=== PATIENT | female | born 1930 | race Caucasian/White ===

== ENCOUNTER 2018-04-30 21:50 | Inpatient (IN) | payer MEDICARE, OTHER ==
[2018-04-30] MEDS ORDERED: FUROSEMIDE INJ/PF 40 MG/4 ML SDV IV ONE ×2 (21:59→23:52)
[2018-04-30] MEDS ORDERED: IPRATROPIUM/ALBUTEROL 0.5-2.5 MG/3 ML AMPUL NEB ONE ×2 (21:59)
[2018-04-30 22:14] LABS: VENOUS BLOOD PCO2 51.4 mmHg (35-63); VENOUS BLOOD PH 7.38 (7.30-7.42)
[2018-04-30 22:22] LABS: ABSOLUTE BASOPHILS # (AUTO) 0.1 10^3/uL (0.0-0.2); ABSOLUTE EOSINOPHILS # (AUTO) 0.2 10^3/uL (0.0-0.6); ABSOLUTE LYMPHOCYTES (AUTO) 1.6 10^3/uL (0.5-4.7); ABSOLUTE MONOCYTES (AUTO) 0.8 10^3/uL (0.1-1.4); ABSOLUTE NEUT (AUTO) 3.2 10^3/uL (1.7-8.2); BASOPHILS % (AUTO) 1.2 % (0-2); EOSINOPHILS % (AUTO) 2.7 % (0-6); HEMATOCRIT 35.4 % (36.0-47.0); HEMOGLOBIN 11.3 g/dL (12.0-15.5); LYMPHOCYTES % (AUTO) 27.9 % (13-45); MEAN CORPUSCULAR HGB CONC 31.9 g/dL (32.0-36.0); MEAN CORPUSCULAR VOLUME 88 fl (80-97); PLATELET COUNT 481 10^3/uL (150-450); RED BLOOD COUNT 4.04 10^6/uL (3.72-5.28); RED CELL DISTRIBUTION WIDTH 17.9 % (11.5-14.0); SEGMENTED NEUTROPHILS % (AUTO) 55.2 % (42-78); TOTAL CELLS COUNTED % (AUTO) 100 %; WHITE BLOOD COUNT 5.9 10^3/uL (4.0-10.5)
[2018-04-30 22:27] LABS: ALANINE AMINOTRANSFERASE 44 U/L (9-52); ALBUMIN 3.2 g/dL (3.5-5.0); ALKALINE PHOSPHATASE 129 U/L (38-126); ANION GAP 10 (5-19); ASPARTATE AMINO TRANSFERASE 42 U/L (14-36); BILIRUBIN,DIRECT 0.2 mg/dL (0.0-0.4); BILIRUBIN,TOTAL 0.4 mg/dL (0.2-1.3); BLOOD UREA NITROGEN 12 mg/dL (7-20); CALCIUM 8.8 mg/dL (8.4-10.2); CARBON DIOXIDE 31 mmol/L (22-30); CHLORIDE 101 mmol/L (98-107); CREATINE KINASE 42 U/L (30-135); GLUCOSE 82 mg/dL (75-110); POTASSIUM 3.9 mmol/L (3.6-5.0); SODIUM 141.7 mmol/L (137-145); TOTAL PROTEIN 5.7 g/dL (6.3-8.2)
--- NOTE | 2018-04-30 22:35 | RADIOLOGY REPORT (SQ) ---
EXAM DESCRIPTION: CHEST SINGLE VIEW COMPLETED DATE/TIME: 04/30/2018 10:26 pm REASON FOR STUDY: SHORTNESS OF BREATH COMPARISON: None. EXAM PARAMETERS: NUMBER OF VIEWS: One view. TECHNIQUE: Single frontal radiographic view of the chest acquired. RADIATION DOSE: NA LIMITATIONS: None. FINDINGS: LUNGS AND PLEURA: Elevation of the right hemidiaphragm. Patchy airspace opacities in the left lung base as well as increased interstitial lung markings throughout. No definite effusions. MEDIASTINUM AND HILAR STRUCTURES: No masses. Contour normal. HEART AND VASCULAR STRUCTURES: Cardiomegaly is present. BONES: No acute findings. HARDWARE: None in the chest. OTHER: No other significant finding. IMPRESSION: Constellation of findings consistent with early congestive heart failure. TECHNICAL DOCUMENTATION: JOB ID: [id number] [employer]- All Rights Reserved Reading location - IP/workstation name: [email or web address]
[2018-04-30 22:39] LABS: NT PRO BNP 1670 pg/mL (<450)
[2018-04-30 22:40] LABS: TROPONIN I < 0.012 ng/mL
--- NOTE | 2018-04-30 23:05 | EKG REPORT ---
SEVERITY:- ABNORMAL ECG - SINUS RHYTHM SUPRAVENTRICULAR BIGEMINY INCOMPLETE RIGHT BUNDLE BRANCH BLOCK CONSIDER ANTERIOR INFARCT : Confirmed by: Laney Aquino MD 30-Apr-2018 23:05:16
[2018-04-30 23:13] LABS: APPEARANCE,URINE SLIGHTLY-CLOUDY; BILIRUBIN,URINE NEGATIVE (NEGATIVE); COLOR,URINE YELLOW; GLUCOSE, URINE NEGATIVE (NEGATIVE); KETONES,URINE NEGATIVE (NEGATIVE); LEUKOCYTE ESTERASE,URINE LARGE (NEGATIVE); NITRITE,URINE NEGATIVE (NEGATIVE); PROTEIN,URINE 100 mg/dL (NEGATIVE); URINE SPECIFIC GRAVITY 1.012; UROBILINOGEN,URINE NEGATIVE mg/dL (<2.0)
[2018-05-01] MEDS ORDERED: CEFTRIAXONE 1 GM/D5W RTU 1 GM/50 ML RTUPB IV ONE (01:37)
[2018-05-01] MEDS ORDERED: CEFTRIAXONE INJ 1000 MG VIAL ONE (01:51)
--- NOTE | 2018-05-01 02:01 | ER Document Report ---
ED General - General Chief Complaint: General Weakness Stated Complaint: ACUTE RESPIRATORY DISTRESS Time Seen by Provider: 04/30/18 21:58 Mode of Arrival: Medic Information source: Emergency Med Personnel Notes: This is an 88-year-old female with a history of CHF that is brought in by EMS in acute respiratory distress with an O2 sat in the field of 71%. Patient's states that she has been getting gradually short of breath progressively over the last several days. He does note that she has had increased swelling of the legs. EMS treated the patient with 1.5 mg of Vasotec and an inch and a half of Nitropaste - HPI Onset: Last week Onset/Duration: Gradual Quality of pain: No pain Severity: None Pain Level: Denies Associated symptoms: Shortness of breath. denies: Chest pain, Fever Exacerbated by: Movement Relieved by: Denies, Remaining still Similar symptoms previously: Yes Recently seen / treated by doctor: No - Related Data Allergies/Adverse Reactions: No Known Allergies Allergy (Unverified 04/30/18 22:27) Past Medical History - General Information source: Patient - Social History Smoking Status: Never Smoker Cigarette use (# per day): No Chew tobacco use (# tins/day): No Frequency of alcohol use: None Drug Abuse: None Lives with: Family Family History: None Patient has suicidal ideation: No Patient has homicidal ideation: No - Past Medical History Cardiac Medical History: Reports: Hx Congestive Heart Failure, Hx Hypertension Endocrine Medical History: Reports: Hx Diabetes Mellitus Type 2 Renal/ Medical History: Denies: Hx Peritoneal Dialysis Review of Systems - Review of Systems Constitutional: denies: Chills, Fever EENT: No symptoms reported Cardiovascular: See HPI Respiratory: See HPI Gastrointestinal: No symptoms reported Genitourinary: No symptoms reported Female Genitourinary: No symptoms reported Musculoskeletal: No symptoms reported Skin: No symptoms reported Hematologic/Lymphatic: No symptoms reported Neurological/Psychological: No symptoms reported Physical Exam - Vital signs Vitals: Resp Pulse Ox 22 H 100 04/30/18 21:55 04/30/18 21:55 Notes: Physical exam: GENERAL: 88-year-old female, acute respiratory distress HEAD: Atraumatic, normocephalic. EYES: Pupils equal round and reactive to light, extraocular movements intact, sclera anicteric, conjunctiva are normal. ENT: TMs normal, nares patent, oropharynx clear without exudates. Moist mucous membranes. NECK: Normal range of motion, supple without obvious mass or JVD. LUNGS: Rales bilaterally HEART: Regular rate and rhythm without murmurs, rubs or gallops. ABDOMEN: Soft, normoactive bowel sounds. No tenderness to palpation. No guarding, no rebound. No masses appreciated. EXTREMITIES: Lower extremity edema. NEUROLOGICAL: Cranial nerves II through XII grossly intact. Normal speech, moving all extremities. PSYCH: Normal mood, normal affect. SKIN: Warm, Dry, normal turgor, no rashes or lesions noted. Course - Re-evaluation Re-evalutation: 05/01/18 01:59 Patient is been treated with IV Lasix, Nitropaste, Vasotec, and BiPAP. She was gradually weaned off the BiPAP and has improved somewhat. Chest x-ray is consistent with CHF. BNP is elevated. She does have a UTI and has been given antibiotics. - Vital Signs Vital signs: Temp Pulse Resp BP Pulse Ox 18 148/74 H 93 04/30/18 22:27 04/30/18 22:27 04/30/18 23:45 - Laboratory Result Diagrams: 04/30/18 21:45 04/30/18 21:45 Laboratory results interpreted by me: 04/30/18 04/30/18 04/30/18 21:45 21:45 21:45 Hgb 11.3 L Hct 35.4 L MCHC 31.9 L RDW 17.9 H Plt Count 481 H Carbon Dioxide 31 H AST 42 H Alkaline Phosphatase 129 H NT-Pro-B Natriuret Pep 1670 H Total Protein 5.7 L Albumin 3.2 L Urine Protein Ur Leukocyte Esterase Urine Ascorbic Acid 04/30/18 22:17 Hgb Hct MCHC RDW Plt Count Carbon Dioxide AST Alkaline Phosphatase NT-Pro-B Natriuret Pep Total Protein Albumin Urine Protein 100 H Ur Leukocyte Esterase LARGE H Urine Ascorbic Acid 40 H - Diagnostic Test Radiology reviewed: Image reviewed, 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 Orellana Unit Admitted: Telemetry
[2018-05-01] MEDS ORDERED: OXYCODONE-ACETAMINOPHEN 5-325 MG TABLET PO PRN (09:36)
[2018-05-01] MEDS ORDERED: PROMETHAZINE HCL INJ 25 MG/1 ML VIAL IV PRN (09:36)
[2018-05-01] MEDS ORDERED: ACETAMINOPHEN 325 MG TABLET PO PRN (09:36)
[2018-05-01] MEDS ORDERED: IPRATROPIUM/ALBUTEROL 0.5-2.5 MG/3 ML AMPUL NEB PRN (09:36)
[2018-05-01] MEDS ORDERED: CEFTRIAXONE 1 GM/D5W RTU 1 GM/50 ML RTUPB IV SCH (10:00)
--- NOTE | 2018-05-01 10:05 | PDOC H&P ---
History of Present Illness Admission Date/PCP: 05/01/18 02:40 AUNG MONREAL PA-C Patient complains of: Progressive difficulty breathing and shortness of breath for few days History of Present Illness: BLANKA TRACY is a 87 year old female This 88-year-old female presents to emergency room apparently in acute respiratory distress. She had been getting severely short of breath over the last few days as well as swelling in her legs. She was found to be hypoxemic with oxygen saturation of 71% and she was treated with IV Vasotec as well as Nitropaste as outpatient. Please note this history is obtained solely from the chart as patient is unable to provide any history due to her condition. At the time of my exam she is also currently on BiPAP. She does appear to be comfortable Past Medical History Cardiac Medical History: Reports: Congestive Heart Failure, Hypertension Endocrine Medical History: Reports: Diabetes Mellitus Type 2 Psychiatric Medical History: Denies: Depression Past Surgical History Past Surgical History: Reports: Other - Unknown Social History Information Source: [facility] Records - Patient has minimal prior records at [facility] Lives with: Family Smoking Status: Former Smoker Last Time Smoked: 40yr ago Frequency of Alcohol Use: None Hx Recreational Drug Use: No Hx Prescription Drug Abuse: No - Advance Directive Resuscitation Status: Full Code Family History Family History: None Parental Family History Reviewed: No Children Family History Reviewed: No Sibling(s) Family History Reviewed.: No Medication/Allergy Allergies/Adverse Reactions: No Known Allergies Allergy (Unverified 04/30/18 22:27) Review of Systems ROS unobtainable: Other - Due to BIPAP and mental status Physical Exam Vital Signs: Temp Pulse Resp BP Pulse Ox 98.4 F 59 L 18 176/50 H 96 05/01/18 07:40 05/01/18 08:39 05/01/18 08:39 05/01/18 07:40 05/01/18 08:39 Intake & Output 04/30/18 05/01/18 05/02/18 06:59 06:59 06:59 Output Total 650 Balance -650 Weight 69.7 kg General appearance: PRESENT: no acute distress, well-developed, other - BIPAP mask on Head exam: PRESENT: atraumatic Neck exam: ABSENT: carotid bruit, JVD, lymphadenopathy, thyromegaly Respiratory exam: PRESENT: accessory muscle use, crackles, rhonchi Cardiovascular exam: PRESENT: RRR, +S1, +S2 GI/Abdominal exam: PRESENT: normal bowel sounds, soft. ABSENT: distended, guarding, mass, organolmegaly, rebound, tenderness Extremities exam: ABSENT: pedal edema, +1 edema, +2 edema Musculoskeletal exam: PRESENT: normal inspection Neurological exam: PRESENT: awake Psychiatric exam: PRESENT: other - unable to evaluate Results Laboratory Results: 04/30/18 21:45 04/30/18 21:45 MCV 88 fl (80-97) 04/30/18 21:45 MCH 28.0 pg (27.0-33.4) 04/30/18 21:45 MCHC 31.9 g/dL (32.0-36.0) L 04/30/18 21:45 RDW 17.9 % (11.5-14.0) H 04/30/18 21:45 Seg Neutrophils % 55.2 % (42-78) 04/30/18 21:45 Lymphocytes % 27.9 % (13-45) 04/30/18 21:45 Monocytes % 13.0 % (3-13) 04/30/18 21:45 Eosinophils % 2.7 % (0-6) 04/30/18 21:45 Basophils % 1.2 % (0-2) 04/30/18 21:45 Absolute Neutrophils 3.2 10^3/uL (1.7-8.2) 04/30/18 21:45 Absolute Lymphocytes 1.6 10^3/uL (0.5-4.7) 04/30/18 21:45 Absolute Monocytes 0.8 10^3/uL (0.1-1.4) 04/30/18 21:45 Absolute Eosinophils 0.2 10^3/uL (0.0-0.6) 04/30/18 21:45 Absolute Basophils 0.1 10^3/uL (0.0-0.2) 04/30/18 21:45 VBG pH 7.38 (7.30-7.42) 04/30/18 22:05 VBG pCO2 51.4 mmHg (35-63) 04/30/18 22:05 VBG HCO3 30.0 mmol/L (20-32) 04/30/18 22:05 VBG Base Excess 4.0 mmol/L 04/30/18 22:05 Chloride 101 mmol/L (98-107) 04/30/18 21:45 Carbon Dioxide 31 mmol/L (22-30) H 04/30/18 21:45 Anion Gap 10 (5-19) 04/30/18 21:45 Est GFR ( Amer) > 60 (>60) 04/30/18 21:45 Est GFR (Non-Af Amer) > 60 (>60) 04/30/18 21:45 Glucose 82 mg/dL (75-110) 04/30/18 21:45 Lactic Acid 1.0 mmol/L (0.7-2.1) 04/30/18 22:05 Calcium 8.8 mg/dL (8.4-10.2) 04/30/18 21:45 Total Bilirubin 0.4 mg/dL (0.2-1.3) 04/30/18 21:45 AST 42 U/L (14-36) H 04/30/18 21:45 ALT 44 U/L (9-52) 04/30/18 21:45 Alkaline Phosphatase 129 U/L (38-126) H 04/30/18 21:45 Total Protein 5.7 g/dL (6.3-8.2) L 04/30/18 21:45 Albumin 3.2 g/dL (3.5-5.0) L 04/30/18 21:45 Urine Color YELLOW 04/30/18 22:17 Urine Appearance SLIGHTLY-CLOUDY 04/30/18 22:17 Urine pH 6.0 (5.0-9.0) 04/30/18 22:17 Ur Specific [place] 1.012 04/30/18 22:17 Urine Protein 100 mg/dL (NEGATIVE) H 04/30/18 22:17 Urine Glucose (UA) NEGATIVE mg/dL (NEGATIVE) 04/30/18 22:17 Urine Ketones NEGATIVE mg/dL (NEGATIVE) 04/30/18 22:17 Urine Blood NEGATIVE (NEGATIVE) 04/30/18 22:17 Urine Nitrite NEGATIVE (NEGATIVE) 04/30/18 22:17 Ur Leukocyte Esterase LARGE (NEGATIVE) H 04/30/18 22:17 Urine WBC (Auto) 71 /HPF 04/30/18 22:17 Urine RBC (Auto) 1 /HPF 04/30/18 22:17 04/30/18 04/30/18 21:45 21:45 Creatine Kinase 42 CK-MB (CK-2) 2.00 Troponin I < 0.012 NT-Pro-B Natriuret Pep 1670 H Impressions: Chest X-Ray 04/30/18 21:51 IMPRESSION: Constellation of findings consistent with early congestive heart failure. Assessment & Plan - Diagnosis (1) Acute hypoxemic respiratory failure Is this a current diagnosis for this admission?: Yes Plan: Continue oxygen support and wean off of BiPAP as tolerated. Acute respiratory failure likely secondary to CHF. (2) CHF (congestive heart failure) Qualifiers: Heart failure chronicity: unspecified Is this a current diagnosis for this admission?: Yes Plan: Chest x-ray suggest early congestive heart failure. BNP is elevated also. There is no prior history of CHF and I have no home medications list at this time so it is really difficult to know if this patient had a prior history of CHF. Will continue Lasix and obtain a two-dimensional echocardiogram. We will continue with vasodilator. EKG shows incomplete right bundle branch block with no acute ST changes (3) UTI (urinary tract infection) Qualifiers: Urinary tract infection type: site unspecified Is this a current diagnosis for this admission?: Yes Plan: Continue Ceftriaxone and follow up on cultures - Time Time Spent: 50 to 70 Minutes Medications reviewed and adjusted accordingly: Yes Anticipated discharge: Home Within: within 48 hours - Inpatient Certification Based on my medical assessment, after consideration of the patient's comorbidities, presenting symptoms, or acuity I expect that the services needed warrant INPATIENT care.: Yes Medical Necessity: Need For Continuous Telemetry Monitoring, Need for IV Antibiotics
[2018-05-01] MEDS: DOCUSATE SODIUM 100 MG CAPSULE PO SCH (10:11)
[2018-05-01] MEDS: FUROSEMIDE INJ/PF 40 MG/4 ML SDV IV SCH ×2 (10:11→22:06)
[2018-05-01] MEDS: ENOXAPARIN SODIUM INJ 40 MG/0.4 ML DISP.SYRIN SUBCUT SCH (10:11)
[2018-05-01] MEDS ORDERED: CEFTRIAXONE SODIUM 1,000 MG in DEXTROSE 5%-WATER 50 ML IV SCH (11:00)
[2018-05-01] MEDS ORDERED: NITROGLYCERIN 2% OINTMENT 1 GM PACKET TP SCH (12:00)
[2018-05-01] MEDS ORDERED: HYDRALAZINE HCL INJ/PF 20 MG/1 ML SDV IV PRN (15:44)
[2018-05-01] MEDS ORDERED: DEXTROSE 50%-WATER 25 GM/50 ML DISP.SYRIN IV PRN ×2 (15:46)
[2018-05-01] MEDS ORDERED: GLUCAGON,HUMAN RECOMB 1 MG INJ IM PRN (15:46)
[2018-05-01] MEDS ORDERED: DEXTROSE 40% GEL 15 GM TUBE PO PRN ×2 (15:46)
[2018-05-01] MEDS: CALCIUM CARBONATE 250 MG/VITAMIN D3 125 UNIT TABLET PO SCH (17:52)
[2018-05-01] MEDS: NITROGLYCERIN 2% OINTMENT 1 GM PACKET TP SCH (17:53)
[2018-05-01] MEDS: DONEPEZIL HCL 5 MG TABLET PO SCH (17:53)
[2018-05-01] MEDS: ESCITALOPRAM OXALATE 10 MG TABLET PO SCH (17:53)
[2018-05-01] MEDS ORDERED: (PENDING PHARMACY ID) (Calcium Carbonate/Vitamin D3 [Oyster Shell 500-Vit D3 200 Tb] 1 EAC PO SCH (18:00)
[2018-05-01] MEDS ORDERED: (PENDING PHARMACY ID) (Donepezil Hcl [Aricept] 10 MG) PO SCH (18:00)
[2018-05-01] MEDS: ATORVASTATIN CALCIUM 20 MG TABLET PO SCH (22:03)
[2018-05-01] MEDS: ASPIRIN 81 MG TABLET, CHEWABLE PO SCH (22:03)
[2018-05-01] MEDS: CARVEDILOL 12.5 MG TABLET PO SCH (22:04)
[2018-05-01] MEDS: NIFEDIPINE 30 MG TAB.ER.24 PO SCH (22:05)
[2018-05-01] MEDS: LOSARTAN POTASSIUM 50 MG TABLET PO SCH (22:12)
[2018-05-01] MEDS: ROPINIROLE HCL 2 MG TABLET PO SCH (22:17)
[2018-05-01] MEDS: CEFTRIAXONE SODIUM 1,000 MG in DEXTROSE 5%-WATER 50 ML IV SCH (22:50)
[2018-05-02] MEDS: NITROGLYCERIN 2% OINTMENT 1 GM PACKET TP SCH ×4 (00:38→17:54)
[2018-05-02] MEDS: LEVOTHYROXINE SODIUM 0.15 MG TABLET PO SCH (05:30)
[2018-05-02 06:32] LABS: HEMATOCRIT 39.4 % (36.0-47.0); HEMOGLOBIN 12.9 g/dL (12.0-15.5); MEAN CORPUSCULAR HEMOGLOBIN 28.2 pg (27.0-33.4); MEAN CORPUSCULAR HGB CONC 32.8 g/dL (32.0-36.0); MEAN CORPUSCULAR VOLUME 86 fl (80-97); PLATELET COUNT 480 10^3/uL (150-450); RED BLOOD COUNT 4.58 10^6/uL (3.72-5.28); RED CELL DISTRIBUTION WIDTH 18.5 % (11.5-14.0); WHITE BLOOD COUNT 8.6 10^3/uL (4.0-10.5)
[2018-05-02 08:42] LABS: BLOOD UREA NITROGEN 16 mg/dL (7-20); CALCIUM 9.2 mg/dL (8.4-10.2); CHLORIDE 89 mmol/L (98-107); GLUCOSE 180 mg/dL (75-110); POTASSIUM 3.5 mmol/L (3.6-5.0); SODIUM 140.3 mmol/L (137-145)
[2018-05-02 08:49] LABS: ANION GAP 12 (5-19)
[2018-05-02 08:59] LABS: CARBON DIOXIDE 39 mmol/L (22-30)
[2018-05-02] MEDS: ENOXAPARIN SODIUM INJ 40 MG/0.4 ML DISP.SYRIN SUBCUT SCH (09:24)
[2018-05-02] MEDS: INSULIN REG, HUMAN 100 UNIT/ML 3 ML VIAL (PYX) SUBCUT PRN ×2 (09:25→16:47)
[2018-05-02] MEDS: CARVEDILOL 12.5 MG TABLET PO SCH ×2 (09:26→23:02)
[2018-05-02] MEDS: DOCUSATE SODIUM 100 MG CAPSULE PO SCH (09:26)
[2018-05-02] MEDS: ANASTROZOLE 1 MG TABLET PO SCH (09:27)
[2018-05-02] MEDS: FUROSEMIDE INJ/PF 40 MG/4 ML SDV IV SCH ×2 (09:28→23:03)
[2018-05-02] MEDS: EPLERENONE 25 MG TABLET PO SCH (09:28)
[2018-05-02] MEDS: ROPINIROLE HCL 2 MG TABLET PO SCH ×2 (09:28→23:06)
[2018-05-02] MEDS ORDERED: (PENDING PHARMACY ID) (Eplerenone [Inspra] 50 MG) PO SCH (10:00)
--- NOTE | 2018-05-02 14:40 | PDOC PROGRESS REPORT ---
Subjective Progress Note for:: 05/02/18 Subjective:: Patient is awake and alert and her is at bedside today Reason For Visit: ACUTE RESPIRATORY FAILURE, CHF EXACERBATION Physical Exam Vital Signs: Temp Pulse Resp BP Pulse Ox 97.7 F 73 21 H 131/47 H 96 05/02/18 07:12 05/02/18 08:50 05/02/18 08:50 05/02/18 07:12 05/02/18 08:50 Intake & Output 05/01/18 05/02/18 05/03/18 06:59 06:59 06:59 Intake Total 600 Output Total 650 3250 Balance -650 -2650 Weight 69.7 kg 66.4 kg General appearance: PRESENT: no acute distress Head exam: PRESENT: atraumatic Neck exam: ABSENT: carotid bruit, JVD, lymphadenopathy, thyromegaly Respiratory exam: PRESENT: accessory muscle use, decreased breath sounds, symmetrical. ABSENT: retraction, rhonchi, tachypnea, wheezes Cardiovascular exam: PRESENT: RRR. ABSENT: diastolic murmur, rubs, systolic murmur GI/Abdominal exam: PRESENT: normal bowel sounds, soft. ABSENT: distended, guarding, mass, organolmegaly, rebound, tenderness Rectal exam: PRESENT: deferred Neurological exam: PRESENT: alert, awake. ABSENT: oriented to person, oriented to place, oriented to time, oriented to situation, CN II-XII grossly intact Psychiatric exam: PRESENT: appropriate affect Results Laboratory Results: 05/02/18 05:56 05/02/18 07:54 05/02/18 05/02/18 05/02/18 05:56 05:56 07:54 WBC 8.6 RBC 4.58 Hgb 12.9 Hct 39.4 MCV 86 MCH 28.2 MCHC 32.8 RDW 18.5 H Plt Count 480 H Sodium Cancelled 140.3 Potassium Cancelled 3.5 L Chloride Cancelled 89 L Carbon Dioxide Cancelled 39 H Anion Gap Cancelled 12 BUN Cancelled 16 Creatinine Cancelled 0.61 Est GFR ( Amer) Cancelled > 60 Est GFR (Non-Af Amer) Cancelled > 60 Glucose Cancelled 180 H Calcium Cancelled 9.2 Impressions: Chest X-Ray 04/30/18 21:51 IMPRESSION: Constellation of findings consistent with early congestive heart failure. Assessment & Plan - Diagnosis (1) Acute hypoxemic respiratory failure Is this a current diagnosis for this admission?: Yes Plan: Continue oxygen support. Acute respiratory failure likely secondary to CHF. (2) CHF (congestive heart failure) Qualifiers: Heart failure type: diastolic Heart failure chronicity: acute on chronic Qualified Code(s): I50.33 - Acute on chronic diastolic (congestive) heart failure Is this a current diagnosis for this admission?: Yes Plan: Chest x-ray suggest early congestive heart failure. BNP is elevated also. Patient actually had an echo done in February 2018 and this revealed normal left ventricular ejection fraction grade 2 diastolic dysfunction and mild to moderate mitral regurgitation EKG shows incomplete right bundle branch block with no acute ST changes (3) UTI (urinary tract infection) Qualifiers: Urinary tract infection type: site unspecified Is this a current diagnosis for this admission?: Yes Plan: We will continue with empiric antibiotics and adjust depending on the culture result (4) Do not resuscitate Is this a current diagnosis for this admission?: Yes Plan: I discussed with the spouse today any complaints the patient is a DO NOT RESUSCITATE - Time Time Spent with patient: 15-24 minutes Medications reviewed and adjusted accordingly: Yes Anticipated discharge: Home Within: within 72 hours - Inpatient Certification Based on my medical assessment, after consideration of the patient's comorbidities, presenting symptoms, or acuity I expect that the services needed warrant INPATIENT care.: Yes Medical Necessity: Need Close Monitoring Due to Risk of Patient Decompensation, Need for Nebulizer Therapy and Monitoring of Response
[2018-05-02] MEDS: ESCITALOPRAM OXALATE 10 MG TABLET PO SCH (17:53)
[2018-05-02] MEDS: DONEPEZIL HCL 5 MG TABLET PO SCH (17:53)
[2018-05-02] MEDS: CALCIUM CARBONATE 250 MG/VITAMIN D3 125 UNIT TABLET PO SCH (17:53)
--- NOTE | 2018-05-02 18:04 | XCELERA REPORT ---
[address] [address] Transthoracic Echocardiogram Report Name: BLANKA TRACY Age: 87 yrs Gender: Female : 1930 Patient Status: Inpatient Patient Location: [address] [place] [address] Study Date: 05/02/2018 02:44 PM Procedure: A complete two-dimensional transthoracic echocardiogram was performed (2D, M-mode, spectral and color flow Doppler). The study was technically adequate with some images being suboptimal in quality. Reason For Study: Dyspnea, elevated BNP Ordering Physician: BERTHA ROME Performed By: Roxann Goff Interpretation Summary The left ventricular ejection fraction is normal. There is mild concentric left ventricular hypertrophy. The left ventricle is grossly normal size. Doppler measurements suggest pseudonormalized left ventricular relaxation, which is associated with grade II/IV or mild to moderate diastolic dysfunction Wall motion cannot be accurately commented on, but no definite regional wall motion abnormalities noted. The right ventricle is mildly dilated. The right ventricle appears to be hypertrophied The right atrium is normal in size The left atrium is mildly dilated. There is a trace amount of mitral regurgitation There is no mitral valve stenosis. There is a trace to mild amount of aortic regurgitation There is mild aortic stenosis There is a mild amount of tricuspid regurgitation There is mild pulmonary hypertension by echo Right ventricular systolic pressure is estimated to be elevated at 30- 40mmHg. The aortic root is not well visualized. The inferior vena cava was not well visualized There is no pericardial effusion. MMode/2D Measurements & Calculations RVDd: 3.6 cm LVIDd: 5.0 cmFS: 27.5 % Ao root diam: 3.4 cm IVSd: 1.1 cm LVIDs: 3.7 cmEDV(Teich): 120.8 ml Ao root area: 9.1 cm2 LVPWd: 1.1 cmESV(Teich): 56.6 ml EF(Teich): 53.1 % LVOT diam: 1.4 cm LVOT area: 1.5 cm2 Doppler Measurements & Calculations MV E max david: MV dec slope: Ao V2 max: AI max david: 47.4 cm/sec 175.5 cm/sec 346.4 cm/sec MV A max david: 205.3 cm/sec2 Ao max PG: AI max P.4 cm/sec MV dec time: 12.3 mmHg 48.0 mmHg MV E/A: 0.58 0.23 sec Ao V2 mean: AI dec slope: 127.8 cm/sec Ao mean P.9 cm/sec2 7.1 mmHg AI P1/2t: Ao V2 VTI: 518.0 msec 36.5 cm TRINI(I,D): 0.62 cm2 TRINI(V,D): 0.51 cm2 LV V1 max PG: SV(LVOT): 22.6 ml PA V2 max: PI end-d david: 1.5 mmHg 100.9 cm/sec 100.9 cm/sec LV V1 mean PG: PA max P.97 mmHg 4.1 mmHg LV V1 max: 61.5 cm/sec LV V1 mean: 47.5 cm/sec LV V1 VTI: 15.5 cm TR max david: 283.0 cm/sec TR max P.0 mmHg Left Ventricle The left ventricle is grossly normal size. There is mild concentric left ventricular hypertrophy. The left ventricular ejection fraction is normal. Doppler measurements suggest pseudonormalized left ventricular relaxation, which is associated with grade II/IV or mild to moderate diastolic dysfunction. Wall motion cannot be accurately commented on, but no definite regional wall motion abnormalities noted. Right Ventricle The right ventricle is mildly dilated. The right ventricle appears to be hypertrophied. The right ventricular systolic function is normal. Atria The right atrium is normal in size. The left atrium is mildly dilated. Interarterial septum not well visualized and not well dopplered. Cannot comment on ASD/PFO presence. Mitral Valve The mitral valve is grossly normal. There is no mitral valve stenosis. There is a trace amount of mitral regurgitation. Aortic Valve The aortic valve is mildly calcified. There is mild aortic stenosis. There is a trace to mild amount of aortic regurgitation. Tricuspid Valve The tricuspid valve is not well visualized, but is grossly normal. There is no tricuspid stenosis. There is a mild amount of tricuspid regurgitation. There is mild pulmonary hypertension by echo. Right ventricular systolic pressure is estimated to be elevated at 30-40mmHg. Pulmonic Valve The pulmonic valve is not well visualized. Great Vessels The aortic root is not well visualized. The inferior vena cava was not well visualized. Effusions There is no pericardial effusion. : BERTHA ROME > Benjamin Cerna
[2018-05-02] MEDS: NIFEDIPINE 30 MG TAB.ER.24 PO SCH (23:02)
[2018-05-02] MEDS: ATORVASTATIN CALCIUM 20 MG TABLET PO SCH (23:02)
[2018-05-02] MEDS: LOSARTAN POTASSIUM 50 MG TABLET PO SCH (23:02)
[2018-05-02] MEDS: ASPIRIN 81 MG TABLET, CHEWABLE PO SCH (23:03)
[2018-05-02] MEDS: CEFTRIAXONE SODIUM 1,000 MG in DEXTROSE 5%-WATER 50 ML IV SCH (23:04)
[2018-05-03] MEDS: NITROGLYCERIN 2% OINTMENT 1 GM PACKET TP SCH ×3 (00:35→18:19)
[2018-05-03] MEDS: LEVOTHYROXINE SODIUM 0.15 MG TABLET PO SCH (05:31)
[2018-05-03] MEDS: INSULIN REG, HUMAN 100 UNIT/ML 3 ML VIAL (PYX) SUBCUT PRN ×2 (08:11→16:25)
[2018-05-03] MEDS: ANASTROZOLE 1 MG TABLET PO SCH (10:45)
[2018-05-03] MEDS: ENOXAPARIN SODIUM INJ 40 MG/0.4 ML DISP.SYRIN SUBCUT SCH (10:46)
[2018-05-03] MEDS: CARVEDILOL 12.5 MG TABLET PO SCH ×2 (10:46→22:15)
[2018-05-03] MEDS: EPLERENONE 25 MG TABLET PO SCH (10:46)
[2018-05-03] MEDS: DOCUSATE SODIUM 100 MG CAPSULE PO SCH (10:46)
[2018-05-03] MEDS: FUROSEMIDE INJ/PF 40 MG/4 ML SDV IV SCH (10:46)
[2018-05-03] MEDS: ROPINIROLE HCL 2 MG TABLET PO SCH ×2 (10:47→22:20)
--- NOTE | 2018-05-03 15:39 | PDOC PROGRESS REPORT ---
Subjective Progress Note for:: 05/03/18 Subjective:: Patient is awake and alert and her is at bedside today No new complaints Reason For Visit: ACUTE RESPIRATORY FAILURE, CHF EXACERBATION Physical Exam Vital Signs: Temp Pulse Resp BP Pulse Ox 97.9 F 70 16 114/46 L 97 05/03/18 11:54 05/03/18 11:54 05/03/18 11:54 05/03/18 11:54 05/03/18 11:54 Intake & Output 05/02/18 05/03/18 05/04/18 06:59 06:59 06:59 Intake Total 650 1823 Output Total 3250 500 Balance -2600 1323 Weight 66.4 kg 66.3 kg General appearance: PRESENT: no acute distress, cooperative Head exam: PRESENT: atraumatic Teeth exam: PRESENT: poor dentation Neck exam: ABSENT: carotid bruit, JVD, lymphadenopathy, thyromegaly Respiratory exam: PRESENT: decreased breath sounds, rhonchi GI/Abdominal exam: PRESENT: normal bowel sounds, soft. ABSENT: distended, guarding, mass, organolmegaly, rebound, tenderness Rectal exam: PRESENT: deferred Neurological exam: PRESENT: alert, awake Psychiatric exam: PRESENT: normal mood Results Laboratory Results: 05/02/18 05:56 05/02/18 07:54 Impressions: Chest X-Ray 04/30/18 21:51 IMPRESSION: Constellation of findings consistent with early congestive heart failure. Assessment & Plan - Diagnosis (1) Acute hypoxemic respiratory failure Is this a current diagnosis for this admission?: Yes Plan: Resolved (2) CHF (congestive heart failure) Qualifiers: Heart failure type: diastolic Heart failure chronicity: acute on chronic Qualified Code(s): I50.33 - Acute on chronic diastolic (congestive) heart failure Is this a current diagnosis for this admission?: Yes Plan: Chest x-ray suggest early congestive heart failure. BNP is elevated also. PCXR shows diastolic dysfunction. She has chronic diastolic dysfunction with acute decompensation EKG shows incomplete right bundle branch block with no acute ST changes (3) UTI (urinary tract infection) Qualifiers: Urinary tract infection type: site unspecified Is this a current diagnosis for this admission?: Yes Plan: Secondary to Salmonella will change antibiotics to Bactrim (4) Do not resuscitate Is this a current diagnosis for this admission?: Yes Plan: We will plan to DC patient in a.m. if she remains stable - Time Time Spent with patient: 15-24 minutes Medications reviewed and adjusted accordingly: Yes Anticipated discharge: Home Within: within 24 hours - Inpatient Certification Based on my medical assessment, after consideration of the patient's comorbidities, presenting symptoms, or acuity I expect that the services needed warrant INPATIENT care.: Yes Medical Necessity: Need Close Monitoring Due to Risk of Patient Decompensation, Risk of Complication if Not Cared For in Hospital
[2018-05-03] MEDS: CALCIUM CARBONATE 250 MG/VITAMIN D3 125 UNIT TABLET PO SCH (17:17)
[2018-05-03] MEDS: ESCITALOPRAM OXALATE 10 MG TABLET PO SCH (17:17)
[2018-05-03] MEDS: SULFAMETHOXAZOLE/TRIMETHOPRIM 800-160 MG TABLET PO SCH (17:17)
[2018-05-03] MEDS: DONEPEZIL HCL 5 MG TABLET PO SCH (17:17)
[2018-05-03] MEDS: ATORVASTATIN CALCIUM 20 MG TABLET PO SCH (22:14)
[2018-05-03] MEDS: ASPIRIN 81 MG TABLET, CHEWABLE PO SCH (22:14)
[2018-05-03] MEDS: NIFEDIPINE 30 MG TAB.ER.24 PO SCH (22:15)
[2018-05-03] MEDS: LOSARTAN POTASSIUM 50 MG TABLET PO SCH (22:16)
[2018-05-04] MEDS: SULFAMETHOXAZOLE/TRIMETHOPRIM 800-160 MG TABLET PO SCH (05:16)
[2018-05-04] MEDS: LEVOTHYROXINE SODIUM 0.15 MG TABLET PO SCH (05:16)
[2018-05-04 06:23] LABS: ABSOLUTE BASOPHILS # (AUTO) 0.1 10^3/uL (0.0-0.2); ABSOLUTE EOSINOPHILS # (AUTO) 0.1 10^3/uL (0.0-0.6); ABSOLUTE LYMPHOCYTES (AUTO) 1.3 10^3/uL (0.5-4.7); ABSOLUTE MONOCYTES (AUTO) 1.3 10^3/uL (0.1-1.4); ABSOLUTE NEUT (AUTO) 4.5 10^3/uL (1.7-8.2); BASOPHILS % (AUTO) 0.8 % (0-2); EOSINOPHILS % (AUTO) 1.9 % (0-6); HEMOGLOBIN 12.1 g/dL (12.0-15.5); LYMPHOCYTES % (AUTO) 17.5 % (13-45); MEAN CORPUSCULAR HGB CONC 32.6 g/dL (32.0-36.0); MEAN CORPUSCULAR VOLUME 86 fl (80-97); MONOCYTES % (AUTO) 17.6 % (3-13); PLATELET COUNT 364 10^3/uL (150-450); RED BLOOD COUNT 4.31 10^6/uL (3.72-5.28); RED CELL DISTRIBUTION WIDTH 17.7 % (11.5-14.0); SEGMENTED NEUTROPHILS % (AUTO) 62.2 % (42-78); TOTAL CELLS COUNTED % (AUTO) 100 %; WHITE BLOOD COUNT 7.3 10^3/uL (4.0-10.5)
[2018-05-04 07:21] LABS: ANION GAP 11 (5-19); BLOOD UREA NITROGEN 20 mg/dL (7-20); CALCIUM 8.9 mg/dL (8.4-10.2); CARBON DIOXIDE 37 mmol/L (22-30); CHLORIDE 85 mmol/L (98-107); GLUCOSE 130 mg/dL (75-110); POTASSIUM 3.7 mmol/L (3.6-5.0); SODIUM 132.9 mmol/L (137-145)
[2018-05-04] MEDS: DOCUSATE SODIUM 100 MG CAPSULE PO SCH ×2 (10:16→11:41)
[2018-05-04] MEDS: CARVEDILOL 12.5 MG TABLET PO SCH (10:16)
[2018-05-04] MEDS: ANASTROZOLE 1 MG TABLET PO SCH (10:17)
[2018-05-04] MEDS: ENOXAPARIN SODIUM INJ 40 MG/0.4 ML DISP.SYRIN SUBCUT SCH (10:17)
[2018-05-04] MEDS: EPLERENONE 25 MG TABLET PO SCH (10:17)
[2018-05-04] MEDS: ROPINIROLE HCL 2 MG TABLET PO SCH (10:17)
--- NOTE | 2018-05-04 11:37 | PDOC DISCHARGE SUMMARY ---
General - Admit/Disc Date/PCP Admission Date/Primary Care Provider: 05/01/18 02:40 AUNG MONREAL PA-C Discharge Date: 05/04/18 - Discharge Diagnosis (1) Acute hypoxemic respiratory failure Is this a current diagnosis for this admission?: Yes (2) CHF (congestive heart failure) Is this a current diagnosis for this admission?: Yes (3) UTI (urinary tract infection) Is this a current diagnosis for this admission?: Yes Summary: Secondary to Salmonella species. Patient has been placed on Bactrim (4) Do not resuscitate Is this a current diagnosis for this admission?: Yes - Additional Information Resuscitation Status: Do Not Resuscitate Discharge Diet: Cardiac, Diabetic Discharge Activity: Activity As Tolerated, Balance Activity w/Rest, Weigh Daily Prescriptions: Sulfamethoxazole/Trimethoprim [Septra-Ds 800-160 mg Tablet] 1 tab PO Q12A #10 tablet Home Medications: Anastrozole [Arimidex] 1 mg PO DAILY 05/01/18 Aspirin [Aspirin 81 mg Chewable Tablet] 81 mg PO QHS 05/01/18 Atorvastatin Calcium [Lipitor 20 mg Tablet] 20 mg PO QHS 05/01/18 Calcium Carbonate/Vitamin D3 [Oyster Shell 500-Vit D3 200 Tb] 1 each PO QPM Carvedilol [Coreg] 12.5 mg PO Q12 05/01/18 Donepezil HCl [Aricept] 10 mg PO QPM 05/01/18 Eplerenone [Inspra] 50 mg PO DAILY 05/01/18 Escitalopram Oxalate [Lexapro] 20 mg PO QPM 05/01/18 Furosemide [Lasix 20 mg Tablet] 20 mg PO DAILY 05/01/18 Glimepiride [Amaryl 1 mg Tablet] 1 mg PO BID 05/01/18 Levothyroxine Sodium [Synthroid] 150 mcg PO Q6AM 05/01/18 Losartan Potassium [Cozaar 100 mg Tablet] 100 mg PO QHS 05/01/18 Metformin HCl [Glucophage] 500 mg PO BIDACBS 05/01/18 Nifedipine [Nifedipine ER] 30 mg PO QHS 05/01/18 Omeprazole 20 mg PO QHS 05/01/18 Ropinirole HCl [Requip 2 mg Tablet] 2 mg PO Q12 05/01/18 Sulfamethoxazole/Trimethoprim [Septra-Ds 800-160 mg Tablet] 1 tab PO Q12A #10 tablet 05/04/18 History of Present Illness History of Present Illness: BLANKA TRACY is a 87 year old female This 88-year-old female presents to emergency room apparently in acute respiratory distress. She had been getting severely short of breath over the last few days as well as swelling in her legs. She was found to be hypoxemic with oxygen saturation of 71% and she was treated with IV Vasotec as well as Nitropaste as outpatient. Please note this history is obtained solely from the chart as patient is unable to provide any history due to her condition. Patient was placed on BiPAP Hospital Course Hospital Course: She was admitted to [facility] and placed on BiPAP for her respiratory distress. She was weaned off BiPAP successfully although she does use this at home. She was found to be hypoxemic on ambulation and she is being sent home on home oxygen. Echocardiogram revealed diastolic dysfunction. Left ventricle is grossly normal in size with pseudo-normalized left ventricular relaxation and grade 2/4 diastolic dysfunction. She was treated with intravenous Lasix and she diuresed pretty well. She has been off BiPAP and appears to be back to her baseline although because she is hypoxemic on ambulation she is being sent home on oxygen. Patient was also found to have a urinary tract infection secondary to Salmonella species and so she has been placed on Bactrim. Will suggest follow- up urinalysis and culture once her antibiotic regimen is completed. Physical Exam Vital Signs: Temp Pulse Resp BP Pulse Ox 98.4 F 58 L 16 144/47 H 94 05/04/18 03:41 05/04/18 07:34 05/04/18 07:34 05/04/18 07:34 05/04/18 07:34 Intake & Output 05/03/18 05/04/18 05/05/18 06:59 06:59 06:59 Intake Total 1823 711 Output Total 500 400 Balance 1323 311 Weight 66.3 kg 68.8 kg General appearance: PRESENT: no acute distress, other - elderly and frail Head exam: PRESENT: atraumatic, normocephalic Eye exam: PRESENT: PERRLA. ABSENT: scleral icterus Mouth exam: PRESENT: moist, tongue midline Neck exam: ABSENT: carotid bruit, JVD, lymphadenopathy, thyromegaly Respiratory exam: PRESENT: crackles. ABSENT: rales, rhonchi, wheezes Cardiovascular exam: PRESENT: RRR. ABSENT: diastolic murmur, rubs, systolic murmur Pulses: PRESENT: normal dorsalis pedis pul Vascular exam: PRESENT: normal capillary refill GI/Abdominal exam: PRESENT: normal bowel sounds, soft. ABSENT: distended, guarding, mass, organolmegaly, rebound, tenderness Rectal exam: PRESENT: deferred Extremities exam: PRESENT: full ROM. ABSENT: calf tenderness, clubbing, pedal edema Musculoskeletal exam: PRESENT: other - Kyphotic Neurological exam: PRESENT: alert, awake, oriented to person, oriented to situation. ABSENT: motor sensory deficit Psychiatric exam: PRESENT: appropriate affect, normal mood. ABSENT: homicidal ideation, suicidal ideation Skin exam: PRESENT: dry, intact, warm. ABSENT: cyanosis, rash Results Laboratory Results: 05/04/18 05:24 05/04/18 05:24 05/04/18 05/04/18 05:24 05:24 WBC 7.3 RBC 4.31 Hgb 12.1 Hct 37.0 MCV 86 MCH 28.0 MCHC 32.6 RDW 17.7 H Plt Count 364 Seg Neutrophils % 62.2 Lymphocytes % 17.5 Monocytes % 17.6 H Eosinophils % 1.9 Basophils % 0.8 Absolute Neutrophils 4.5 Absolute Lymphocytes 1.3 Absolute Monocytes 1.3 Absolute Eosinophils 0.1 Absolute Basophils 0.1 Sodium 132.9 L Potassium 3.7 Chloride 85 L Carbon Dioxide 37 H Anion Gap 11 BUN 20 Creatinine 0.60 Est GFR ( Amer) > 60 Est GFR (Non-Af Amer) > 60 Glucose 130 H Calcium 8.9 Impressions: Chest X-Ray 04/30/18 21:51 IMPRESSION: Constellation of findings consistent with early congestive heart failure. Qualifiers - * PATIENT BEING DISCHARGED WITH ANY OF THE FOLLOWING DIAGNOSIS: Heart Failure HF Pt being discharged on ACEI for LVEF less than 40%?: No Reason(s) for not prescribing ACEI:: Not indicated HF Pt being discharged on ARBS for LVEF less than 40%?: Yes HF Pt with Afib discharged with Warfarin?: No Reason(s) for not prescribing Warfarin:: Not indicated HF Pt discharged on evidence-based Beta Alicia:: Yes Plan Time Spent: Greater than 30 Minutes
[2018-05-04 12:27] VITALS: BP 146/53
== END 2018-05-04 14:43 | disposition home or self-care (01) | DRG 291 ==
LOC: ER 21:50 → EH 05-01 02:40 → 3S 05-01 06:13
PROVIDERS: ADMIT Internal Medicine; ATTEND Internal Medicine
PROC: 5A09457 Assistance with Respiratory Ventilation, 24-96 Consecutive Hours, Continuous Positive Airway Pressure (ICD-10-PCS; principal; 2018-05-01)
DX: I11.0 Hypertensive heart disease with heart failure (principal); J96.01 Acute respiratory failure with hypoxia; N39.0 Urinary tract infection, site not specified; A02.8 Other specified salmonella infections; I50.33 Acute on chronic diastolic (congestive) heart failure; E11.9 Type 2 diabetes mellitus without complications; Z87.891 Personal history of nicotine dependence; Z66 Do not resuscitate; I45.10 Unspecified right bundle-branch block; Z99.81 Dependence on supplemental oxygen
CPT/HCPCS: 36415; 51702; 71045; 80048; 80053; 81001; 82550; 82553; 82803; 82962; 83605; 83880; 84484; 85025; 85027; 87040; 87086; 87088; 87186; 93005; 93010; 93306; 94640; 94660; 96374; 96375; 96376; 99291; G8978-GP; G8979-GP; J0696; J1650; J1815; J1940; J3490; J7620